=== PATIENT | female | born 1935 | race Caucasian/White ===

== ENCOUNTER 2016-10-23 13:18 | Emergency (ER) | payer MEDICARE ==
[2016-10-23 16:37] LABS: BASOPHIL 0.4 % (0-2); EOSINOPHIL 2.1 % (0-7); HCT 47.6 % (37.0-47.0); HGB 16.4 g/dl (12.5-16.0); LYMPHOCYTE 11.8 % (15-48); MCH 29.9 pg (25.0-31.0); MCHC 34.5 g/dL (32.0-36.0); MCV 86.7 fL (78.0-100.0); MONOCYTE 11.3 % (0-12); MPV 10.5 fL (6.0-9.5); NEUTROPHIL 74.4 % (41-80); PLT 228 K/uL (150-400); RBC 5.49 M/uL (4.20-5.40); RDW 14.6 % (11.5-14.0)
[2016-10-23 17:04] LABS: ALBUMIN 3.7 g/dL (3.4-4.8); BILIRUBIN - TOTAL 0.8 mg/dL (0.1-1.0); CREATININE 0.9 mg/dL (0.5-1.0); POTASSIUM 4.6 mmol/L (3.5-5.1); TOTAL PROTEIN 7.7 g/dL (6.4-8.3)
[2016-10-23 17:21] LABS: BILIRUBIN NEGATIVE (NEGATIVE); BLOOD NEGATIVE Ery/uL (NEGATIVE); CLARITY CLEAR (CLEAR); COLOR YELLOW (YELLOW); GLUCOSE (U) NORMAL (NORMAL); KETONE (U) NEGATIVE (NEGATIVE); LEUKOCYTES TRACE Leu/uL (NEGATIVE); NITRITE NEGATIVE (NEGATIVE); PROTEIN TRACE (LOW) mg/dL (NEGATIVE); UROBILINOGEN 0.2 mg/dL (0.2-1.0); pH 6.5 (5.0-9.0)
[2016-10-23 17:32] LABS: BACTERIA TRACE; MUCOUS MODERATE
[2016-10-23 17:33] LABS: GRANULAR CASTS TRACE
== END 2016-10-23 18:23 | disposition home or self-care (01) ==
LOC: FER 13:18
PROVIDERS: Internal Medicine
DX: G43.909 Migraine, unspecified, not intractable, without status migrainosus (principal); I48.91 Unspecified atrial fibrillation; Z88.1 Allergy status to other antibiotic agents; Z88.6 Allergy status to analgesic agent; Z88.8 Allergy status to other drugs, medicaments and biological substances; Z79.82 Long term (current) use of aspirin; Z79.01 Long term (current) use of anticoagulants; Z79.899 Other long term (current) drug therapy
CPT/HCPCS: 36415; 80053; 81001; 85025; 86308; J2405; J2765; J2800

== ENCOUNTER 2020-12-23 14:43 | Day surgery (SDCO) | payer MEDICARE ==
[~2020-12-23] VITALS: Ht 152.4 cm; Wt 71.5 kg
[~2020-12-23 14:43] MED LIST: 8 HOUR650 MG PO; ACETAMINOPHEN325 MG PO; AMARYL4 MG PO; ASPIRIN CHEWABL81 MG PO; ASPIRIN EC81 MG PO; BACLOFEN 10MG T10 MG PO; BENTYL10 MG PO; BIOTIN1 MG PO; BREO ELLIPTA 11 EACH INH; BUSPAR5 MG PO; CALTRATE PO; CARDIZEM CD120 MG PO; CATAPRES0.1 MG PO; CITRACAL SOFT1 EACH PO; DIGITEK125 MCG PO; DILAUDID PAIN PUMP; DILTIAZEM ER300 MG PO; ELIQUIS5 MG PO; FLORASTOR250 MG PO; FLOVENT DISKUS50 MCG; JANUVIA50 MG PO; KLONOPIN0.5 MG PO; KLOR-CON M2020 MEQ PO; LASIX40 MG PO; LAXATIVE OF CHOICE; LEVAQUIN750 MG PO; LIPITOR10 MG PO; MAG-OXIDE 400M400 MG PO; MICRO-K10 MEQ PO; NEURONTIN300 M1 PO; NEURONTIN300 MG PO; NITROQUIK SL0.4 MG SL; NORCO 5-325 TA1 EACH PO; NORTRIPTYLINE H10 MG PO; NORVASC2.5 M1 PO; PRAVACHOL20 MG PO; PRAVACHOL40 MG PO; PRINIVIL10 MG PO; PROBIOTIC1 EAC1 PO; PROTONIX 40MG T40 MG PO; SPIRIVA 18MCG18 MCG PO; SYNTHROID137 MCG PO; SYNTHROID150 MCG PO; TOPROL XL 25MG25 MG PO; VITAMIN D2000 UNI1 PO; ZESTRIL5 MG PO; ZOLOFT100 M1 PO; ZOLOFT100 MG PO
[2020-12-23 16:14] LABS: BASOPHIL 0.6 % (0-2); EOSINOPHIL 3.4 % (0-7); HCT 32.9 % (37.0-47.0); HGB 10.8 g/dl (12.5-16.0); LYMPHOCYTE 8.9 % (15-48); MCH 28.5 pg (25.0-31.0); MCHC 32.8 g/dL (32.0-36.0); MCV 86.8 fL (78.0-100.0); MONOCYTE 9.4 % (0-12); MPV 10.9 fL (6.0-9.5); NRBC 0; PLT 185 K/uL (150-400); RBC 3.79 M/uL (4.20-5.40); WBC 10.2 K/uL (4.0-10.5)
[2020-12-23 17:22] LABS: CREATININE 1.46 mg/dL (0.51-0.95); POTASSIUM 5.3 mmol/L (3.5-5.1)
[2020-12-23] MEDS ORDERED: INCRUSE ELLI62.5 MCG INH (19:17)
[2020-12-23] MEDS ORDERED: ALDACTONE25 MG PO (19:18)
[2020-12-23] MEDS ORDERED: NORVASC2.5 MG PO (19:19)
[2020-12-23 22:16] LABS: BILIRUBIN NEGATIVE (NEGATIVE); BLOOD NEGATIVE Ery/uL (NEGATIVE); CLARITY CLEAR (CLEAR); COLOR YELLOW (YELLOW); GLUCOSE (U) NORMAL (NORMAL); LEUKOCYTES TRACE Leu/uL (NEGATIVE); NITRITE NEGATIVE (NEGATIVE); PROTEIN NEGATIVE (NEGATIVE); SPECIFIC GRAVITY 1.015 (1.001-1.030); UROBILINOGEN 0.2 mg/dL (0.2-1.0)
[2020-12-23 22:21] LABS: URINARY WBC RARE
[2020-12-23 22:22] LABS: BACTERIA TRACE
[2020-12-24 05:59] LABS: BASOPHIL 0.4 % (0-2); EOSINOPHIL 3.9 % (0-7); HCT 31.5 % (37.0-47.0); HGB 10.1 g/dl (12.5-16.0); LYMPHOCYTE 11.2 % (15-48); MCH 28.2 pg (25.0-31.0); MCHC 32.1 g/dL (32.0-36.0); MONOCYTE 11.4 % (0-12); MPV 10.7 fL (6.0-9.5); NEUTROPHIL 72.5 % (41-80); NRBC 0; PLT 158 K/uL (150-400); RBC 3.58 M/uL (4.20-5.40); RDW 15.1 % (11.5-14.0); WBC 7.3 K/uL (4.0-10.5)
[2020-12-24 06:27] LABS: BUN/CREAT RATIO (CALC) 37.6 RATIO; CREATININE 1.09 mg/dL (0.51-0.95); POTASSIUM 3.9 mmol/L (3.5-5.1)
[2020-12-25 06:25] LABS: BASOPHIL 0.5 % (0-2); EOSINOPHIL 4.5 % (0-7); HCT 30.9 % (37.0-47.0); HGB 9.9 g/dl (12.5-16.0); LYMPHOCYTE 13.2 % (15-48); MCH 28.5 pg (25.0-31.0); MONOCYTE 10.5 % (0-12); MPV 10.8 fL (6.0-9.5); NEUTROPHIL 70.3 % (41-80); NRBC 0; PLT 167 K/uL (150-400); RBC 3.47 M/uL (4.20-5.40); RDW 15.3 % (11.5-14.0); WBC 7.7 K/uL (4.0-10.5)
[2020-12-25 06:42] LABS: CREATININE 0.69 mg/dL (0.51-0.95); POTASSIUM 4.1 mmol/L (3.5-5.1)
--- NOTE | 2020-12-25 10:13 | NUR ---
12/25/20 Cesilia Tee, Daughter, ([phone]) telephoned requested placement for short term [facility]. at [facility]. Ms. Ferreira was agreeable. [facility] has accepted patient for admission today. Ms. Tee will transport. - A report was given to Dr. Sibley and MS Za RN.
== END 2020-12-25 13:50 ==
LOC: FER 14:43 → FMS 17:36 → FER 18:15 → FMS 21:18
PROVIDERS: Emergency Medicine; Nurse Practitioner; ADMIT Internal Medicine
DX: N17.9 Acute kidney failure, unspecified (principal); S61.411A Laceration without foreign body of right hand, initial encounter; S40.812A Abrasion of left upper arm, initial encounter; E86.0 Dehydration; I11.0 Hypertensive heart disease with heart failure; I50.32 Chronic diastolic (congestive) heart failure; I25.10 Atherosclerotic heart disease of native coronary artery without angina pectoris; I48.20 Chronic atrial fibrillation, unspecified; E87.1 Hypo-osmolality and hyponatremia; M50.33 Other cervical disc degeneration, cervicothoracic region; E03.9 Hypothyroidism, unspecified; G47.33 Obstructive sleep apnea (adult) (pediatric); I27.20 Pulmonary hypertension, unspecified; F41.1 Generalized anxiety disorder; F32.9 Major depressive disorder, single episode, unspecified; K21.9 Gastro-esophageal reflux disease without esophagitis; Z79.01 Long term (current) use of anticoagulants; Z79.899 Other long term (current) drug therapy; Z20.822 Contact with and (suspected) exposure to COVID-19; Z85.828 Personal history of other malignant neoplasm of skin; Z86.73 Personal history of transient ischemic attack (TIA), and cerebral infarction without residual deficits; Z95.5 Presence of coronary angioplasty implant and graft; Z95.0 Presence of cardiac pacemaker; Z87.81 Personal history of (healed) traumatic fracture; Z90.89 Acquired absence of other organs; W01.0XXA Fall on same level from slipping, tripping and stumbling without subsequent striking against object, initial encounter
CPT/HCPCS: 36415; 70450; 71045; 72125; 72131; 72170; 73060; 80048; 81001; 82550; 84443; 84484; 85025; 93005; 97161; 97530-GP; G0378; J7030; U0002

== ENCOUNTER 2021-01-08 16:45 | Emergency (ER) | payer MEDICARE ==
[~2021-01-08 16:45] MED LIST changes: +ALDACTONE25 MG PO; +INCRUSE ELLI62.5 MCG INH; +NORVASC2.5 MG PO
[2021-01-08] MEDS ORDERED: AUGMENTIN 875-1 EACH PO (17:54)
== END 2021-01-08 19:10 | disposition home or self-care (01) ==
LOC: FER 16:45
DX: S61.451A Open bite of right hand, initial encounter (principal); L03.113 Cellulitis of right upper limb; I48.91 Unspecified atrial fibrillation; I11.0 Hypertensive heart disease with heart failure; I50.9 Heart failure, unspecified; Z88.8 Allergy status to other drugs, medicaments and biological substances; W54.0XXA Bitten by dog, initial encounter; Y92.009 Unspecified place in unspecified non-institutional (private) residence as the place of occurrence of the external cause
CPT/HCPCS: 99283

== ENCOUNTER 2021-05-26 13:02 | Day surgery (SDCO) | payer MEDICARE ==
[~2021-05-26] VITALS: Ht 152.4 cm; Wt 72.6 kg
[~2021-05-26 13:02] MED LIST changes: +AUGMENTIN 875-1 EACH PO
[2021-05-26 15:40] LABS: BASOPHIL 0.3 % (0-2); HCT 29.5 % (37.0-47.0); HGB 9.5 g/dl (12.5-16.0); LYMPHOCYTE 9.2 % (15-48); MCHC 32.2 g/dL (32.0-36.0); MCV 89.9 fL (78.0-100.0); MONOCYTE 9.1 % (0-12); NEUTROPHIL 78.4 % (41-80); NRBC 0; PLT 199 K/uL (150-400); RBC 3.28 M/uL (4.20-5.40); RDW 16.7 % (11.5-14.0); WBC 8.7 K/uL (4.0-10.5)
[2021-05-26 16:03] LABS: BILIRUBIN NEGATIVE (NEGATIVE); BLOOD NEGATIVE Ery/uL (NEGATIVE); CLARITY CLEAR (CLEAR); COLOR YELLOW (YELLOW); GLUCOSE (U) NORMAL (NORMAL); LEUKOCYTES NEGATIVE Leu/uL (NEGATIVE); NITRITE NEGATIVE (NEGATIVE); PROTEIN NEGATIVE (NEGATIVE); SPECIFIC GRAVITY 1.015 (1.001-1.030); UROBILINOGEN 0.2 mg/dL (0.2-1.0)
[2021-05-26 16:14] LABS: CORONAVIRUS 2019 SARS-COV-2 NEGATIVE (NEGATIVE); INFLUENZA A NAA NEGATIVE (NEGATIVE)
[2021-05-26 16:21] LABS: ALBUMIN 3.9 g/dL (3.4-5.0); BILIRUBIN - TOTAL 0.5 mg/dL (0.2-1.0); CREATININE 1.98 mg/dL (0.51-0.95); GLOBULIN (CALCULATION) 3.4 g/dL; POTASSIUM 6.1 mmol/L (3.5-5.1); TOTAL PROTEIN 7.3 g/dL (6.4-8.2)
[2021-05-26 23:36] LABS: BUN/CREAT RATIO (CALC) 42.5 RATIO; CREATININE 1.86 mg/dL (0.51-0.95); POTASSIUM 5.1 mmol/L (3.5-5.1)
[2021-05-27] MEDS ORDERED: TOPROL XL 25MG25 MG PO (01:36)
[2021-05-27] MEDS ORDERED: LASIX40 MG PO (01:43)
[2021-05-27] MEDS ORDERED: AJOVY AUTO225 MG/1.5 ID (01:46)
[2021-05-27] MEDS ORDERED: POTASSIUM CHLO10 MEQ PO (01:47)
[2021-05-27] MEDS ORDERED: SUCRALFATE1 GM PO (01:48)
[2021-05-27] MEDS ORDERED: PROAIR HFA8.5 GM PO (01:49)
[2021-05-27 07:06] LABS: BASOPHIL 0.5 % (0-2); EOSINOPHIL 4.5 % (0-7); HGB 8.7 g/dl (12.5-16.0); LYMPHOCYTE 15.2 % (15-48); MCH 28.7 pg (25.0-31.0); MCV 95.7 fL (78.0-100.0); MPV 10.4 fL (6.0-9.5); NEUTROPHIL 67.5 % (41-80); NRBC 0; PLT 169 K/uL (150-400); RBC 3.03 M/uL (4.20-5.40); RDW 16.9 % (11.5-14.0); WBC 5.7 K/uL (4.0-10.5)
[2021-05-27 07:28] LABS: BUN/CREAT RATIO (CALC) 51.4 RATIO; CREATININE 1.46 mg/dL (0.51-0.95); POTASSIUM 4.4 mmol/L (3.5-5.1)
[2021-05-28 06:56] LABS: BASOPHIL 0.9 % (0-2); EOSINOPHIL 4.7 % (0-7); HCT 28.2 % (37.0-47.0); HGB 8.9 g/dl (12.5-16.0); LYMPHOCYTE 13.4 % (15-48); MCH 28.8 pg (25.0-31.0); MCHC 31.6 g/dL (32.0-36.0); MONOCYTE 11.4 % (0-12); MPV 10.5 fL (6.0-9.5); NRBC 0; PLT 181 K/uL (150-400); RBC 3.09 M/uL (4.20-5.40); RDW 17.2 % (11.5-14.0); WBC 5.4 K/uL (4.0-10.5)
[2021-05-28 06:57] LABS: MCV 91.3 fL (78.0-100.0)
[2021-05-28 07:10] LABS: ALBUMIN 3.1 g/dL (3.4-5.0); BILIRUBIN - TOTAL 0.4 mg/dL (0.2-1.0); CREATININE 0.78 mg/dL (0.51-0.95); GLOBULIN (CALCULATION) 3.4 g/dL; POTASSIUM 4.2 mmol/L (3.5-5.1); TOTAL PROTEIN 6.5 g/dL (6.4-8.2)
== END 2021-05-28 12:45 | disposition home or self-care (01) ==
LOC: FER 13:02 → FMS 18:04
PROVIDERS: Family Medicine; Internal Medicine; Nurse Practitioner; ADMIT Internal Medicine
DX: N17.9 Acute kidney failure, unspecified (principal); G93.41 Metabolic encephalopathy; I11.0 Hypertensive heart disease with heart failure; I25.10 Atherosclerotic heart disease of native coronary artery without angina pectoris; E78.5 Hyperlipidemia, unspecified; I48.20 Chronic atrial fibrillation, unspecified; I50.32 Chronic diastolic (congestive) heart failure; G47.33 Obstructive sleep apnea (adult) (pediatric); F41.1 Generalized anxiety disorder; F32.A Depression, unspecified; E03.9 Hypothyroidism, unspecified; K21.9 Gastro-esophageal reflux disease without esophagitis; K31.84 Gastroparesis; E87.5 Hyperkalemia; G89.29 Other chronic pain; M54.9 Dorsalgia, unspecified; Z79.01 Long term (current) use of anticoagulants; Z95.5 Presence of coronary angioplasty implant and graft; Z88.0 Allergy status to penicillin; Z88.2 Allergy status to sulfonamides; Z88.6 Allergy status to analgesic agent; Z88.1 Allergy status to other antibiotic agents; Z20.822 Contact with and (suspected) exposure to COVID-19; D64.9 Anemia, unspecified; L03.116 Cellulitis of left lower limb
CPT/HCPCS: 36415; 70450; 71045; 71250; 73560; 80048; 80053; 80162; 81003; 83880; 84145; 85025; 93005; 93971; 97162; 97166; 97530-GP; 97535; G0378; J7030; J7050; U0002